=== PATIENT | male | born 1985 | race African-American/Black ===

== ENCOUNTER 2023-02-17 15:53 | Outpatient (AMB) | payer OTHER, SELFPAY ==
--- NOTE | 2023-02-17 16:11 | A.OFFPC_ITS ---
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 HTN: Blood pressure is elevated today. He is taking lisinopril 10mg. Denies chest pain, shortness of breath, headache, dizziness, and blurred vision. He reports he is fasting, which always causes his BP to rise. He reports being checked at other medical facilities, reporting his BP is much better. He would rather not start/increase any medication. I will have him take his BP at home, and drop off values in 2-3 weeks. WIll add/adjust medications depending on values. Awaiting previous records from previous provider. #2 Pt reports twisting discomfort to his LLQ. He reports it is 4 times a year, descirbing passing hard stool . educated pt on constipation, treatment, including water increase, stool softeners, more fiber (in foods/supplement). [facility] Family History (Updated 02/17/23 @ 16:20 by YESY Landon) Mother Substance abuse in family Father Substance abuse in family Social History Housing: House Patient Tobacco Use Status: Never used Tobacco service: No Current occupational status: employed Cognitive needs: No Hearing needs: No Vision needs: No Questionnaire AUDIT C Alcohol Use Questionnaire (AUDIT-C) 1. How often do you have a drink containing alcohol?: Monthly or less 2. How many drinks containing alcohol do you have on a typical day when you are drinking?: 1 or 2 3. How often do you have six or more drinks on one occasion?: Never Total Score: 1 Score Reviewed/Action Taken: No Review of Systems Const Reports as per HPI Physical exam (Primary Care) Vital Signs: Last Vital Signs BP 160/120 H 02/17/23 16:18 Tobacco/Smoking Status: Tobacco use Status Tobacco use date assessed 02/17/23 02/17/23 16:22 Patient Tobacco Use Status Never used Tobacco 02/17/23 16:22 Const General: cooperative Orientation/consciousness: patient oriented x3 Resp Effort & Inspection: normal respiratory effort Auscultation: clear to auscultation bilaterally Cardio Rate: regular rate Rhythm: regular rhythm Heart sounds: S1 normal heart sound present, S2 normal heart sound present and no murmurs Neuro General: patient oriented x3 Extrem Right lower extremity: no edema Left lower extremity: no edema Psych Appearance: grossly normal Mental Status: mental status grossly normal Speech and movement: Normal speech and movement present Affect: normal affect Attitude: cooperative Thought process: Normal thought process present Thought content: Normal thought content present Insight: Good insight present (Psych) Judgement: Good judgement present (Psych) Assessment and Plan Assessment & Plan (1) HTN (hypertension): Code(s): I10 - Essential (primary) hypertension Plan: continue lisinopril 10mg, drop off values from home in 2-3 weeks. ER if symptomatic (2) Constipation: Code(s): K59.00 - Constipation, unspecified Plan: increased fiber and water. May use miralax or stool softeners Plan The patient agreed to the use of a manager medical device for this encounter. Scribed for CASSIE Lopez by Mervat Camarena manager medical device, on 02/17/2023 at 16:30 EST. Orders: Orders UA CC w/rflx Micro + Cult Today I10 - Essential (primary) hypertension Complete Blood Count Auto Diff Today I10 - Essential (primary) hypertension Comprehensive [place]. Panel Fast Today I10 - Essential (primary) hypertension TSH reflex Free T4 Today I10 - Essential (primary) hypertension Lipid Panel Today I10 - Essential (primary) hypertension Coding Level of Care Code New Pt Level 3 (01272) Diagnoses HTN (hypertension) I10 Constipation K59.00
[2023-02-17 16:18] VITALS: BP 160/120
== END 2023-02-17 17:10 | disposition home or self-care (01) ==
PROVIDERS: PCP Nurse Practitioner Family; Visit Provider Nurse Practitioner Family
DX: I10 Essential (primary) hypertension (principal); K59.00 Constipation, unspecified
CPT/HCPCS: 99203

== ENCOUNTER 2023-06-22 15:33 | Outpatient (AMB) | payer OTHER, SELFPAY ==
--- NOTE | 2023-06-22 15:36 | A.OFFPC_ITS ---
Vital Signs 06/22/23 15:40 Height 5 ft 10 in Weight 290 lb BMI 41.6 BP 122/76 Blood Pressure Location Lt brachial Position Sitting Pulse 114 H Pulse Source Pulse Oximeter Pulse Oximetry (%) 96 Oxygen Delivery Method Room Air Intake Visit Reasons: 4 Month F/U Intake Note: pt is here for 4 month follow up, patient did not do labs Orthopedics Pediatric Physician Required: No Accompanied by: Self / Same As Patient Allergies No Known Allergies Allergy (Verified 06/22/23 17:16) Medication List - Last Reconciled 06/22/23 by Emory Vasquez, [facility] lisinopril 10 mg PO DAILY Tobacco use date assessed: 06/22/23 Dental Screening Dental Screen Date: 06/22/23 Did you have a dental visit in the last 12 months?: No Did you have a dental problem in the last 6 months where you did not have access to dental care?: No Was dental information given to patient?: Yes HPI 4 Month F/U HPI Details Pt was seen in [place] [facility] last month due to abdominal pain. He reports that CT showed diverticulitis. He was given antibiotics and admitted. Pt reportedly developed an abscess and was given IV fluids and antibiotics. No surgical intervention was performed. Missing documentation from this. He reports softer stool this morning. Pt reports increased LLQ abdominal pain. Concern for recurrent abscess. Sending pt to [place] [facility] for further evaluation. Denies fever and N/V/D. HTN: Blood pressure is stable. Denies chest pain, shortness of breath, and dizziness. PFSH Surgical History (Updated 06/22/23 @ 15:41 by Yinka Conley CMA) S/P ACL surgery Family History Mother Substance abuse in family Father Substance abuse in family Social History Housing: House Patient Tobacco Use Status: Never used Tobacco e-Cigarette/Vaping Use: Never Used service: No Current occupational status: employed Current occupation: [employer] Cognitive needs: No Hearing needs: No Vision needs: No Questionnaire Thrive Questionnaire Date Thrive assessed: 06/22/23 AUDIT C Alcohol Use Questionnaire (AUDIT-C) 1. How often do you have a drink containing alcohol?: Monthly or less 2. How many drinks containing alcohol do you have on a typical day when you are drinking?: 1 or 2 3. How often do you have six or more drinks on one occasion?: Never Total Score: 1 Score Reviewed/Action Taken: No SILVIA-7 AMB Questionnaire SILVIA-7 Date SILVIA - 7 assessed: 06/22/23 Source: Developed by Drs. Patrick Edwards, Angi Aguilera, Munir Grossman and colleagues, with an educational lito from [employer]. Review of Systems Const Reports as per HPI Physical exam (Primary Care) Vital Signs: Last Vital Signs Pulse 114 H 06/22/23 15:40 BP 122/76 06/22/23 15:40 Pulse Ox 96 06/22/23 15:40 Oxygen Delivery Method Room Air 06/22/23 15:40 BMI result Body Mass Index 41.6 Tobacco/Smoking Status: Tobacco use Status Tobacco use date assessed 06/22/23 06/22/23 15:39 Patient Tobacco Use Status Never used Tobacco 06/22/23 15:39 e-Cigarette/Vaping Use Never Used 06/22/23 15:45 Thrive Assessment: Date of Thrive Assessment Date Thrive assessed 06/22/23 06/22/23 15:45 Const General: cooperative Nutritional Appearance: obese morbidly obese Orientation/consciousness: patient oriented x3 GI Other: severe tenderness noted with slight palpation of LLQ Neuro General: patient oriented x3 Psych Appearance: grossly normal Mental Status: mental status grossly normal Speech and movement: Normal speech and movement present Affect: normal affect Attitude: cooperative Thought process: Normal thought process present Thought content: Normal thought content present Insight: Good insight present (Psych) Judgement: Good judgement present (Psych) Assessment and Plan Assessment & Plan (1) HTN (hypertension): Code(s): I10 - Essential (primary) hypertension Plan: stable (2) History of diverticular abscess: Code(s): Z87.19 - Personal history of other diseases of the digestive system Plan: told pt to go directly to the ER at [facility] Coding Level of Care Code Est Pt Level 3 (43026) Diagnoses HTN (hypertension) I10 History of diverticular abscess Z87.19
[2023-06-22 15:40] VITALS: BP 122/76; PULSE 114; O2SAT 96; BMI 41.6
== END 2023-06-22 16:07 | disposition home or self-care (01) ==
LOC: HO.HMGC 15:33
PROVIDERS: PCP Nurse Practitioner Family; Visit Provider Nurse Practitioner Family
DX: I10 Essential (primary) hypertension (principal); Z87.19 Personal history of other diseases of the digestive system
CPT/HCPCS: 99213

== ENCOUNTER 2023-06-30 09:16 | Outpatient (AMB) | payer OTHER, SELFPAY ==
--- NOTE | 2023-06-30 09:18 | MHC.PC.OV ---
Vital Signs 06/30/23 09:19 Height 5 ft 10 in Intake Visit Reasons: BP check Allergies No Known Allergies Allergy (Verified 06/30/23 09:02) Medication List - Last Reconciled 06/30/23 by DONNA VasquezP- amlodipine 2.5 mg PO DAILY ciprofloxacin HCl 500 mg PO BID lisinopril-hydrochlorothiazide 20-12.5 mg 1 tab PO DAILY metronidazole 500 mg PO TID Tobacco use date assessed: 06/22/23 HPI BP check HPI Details HTN: Blood pressure is managed with lisinopril 10mg. Pt does not monitor his blood pressure at home, encouraged him to do so. Will stop lisinopril 10mg and start lisinopril-hctz 20-12.5mg. Will also add amlodipine 2.5mg. Denies chest pain, shortness of breath, headache, dizziness, and blurred vision. [facility] Surgical History (Updated 06/22/23 @ 15:41 by Yinka Conley CMA) S/P ACL surgery Family History Mother Substance abuse in family Father Substance abuse in family Social History Housing: House Patient Tobacco Use Status: Never used Tobacco e-Cigarette/Vaping Use: Never Used service: No Current occupational status: employed Current occupation: [employer] Cognitive needs: No Hearing needs: No Vision needs: No Questionnaire Thrive Questionnaire Date Thrive assessed: 06/22/23 SILVIA-7 AMB Questionnaire SILVIA-7 Date SILVIA - 7 assessed: 06/22/23 Source: Developed by Drs. Patrick Edwards, Angi Aguilera, Munir Grossman and colleagues, with an educational lito from [employer]. Review of Systems Const Reports as per HPI Physical exam (Primary Care) Tobacco/Smoking Status: Tobacco use Status Tobacco use date assessed 06/22/23 06/30/23 09:19 Patient Tobacco Use Status Never used Tobacco 06/30/23 09:19 e-Cigarette/Vaping Use Never Used 06/30/23 09:19 Thrive Assessment: Date of Thrive Assessment Date Thrive assessed 06/22/23 06/30/23 09:19 Const General: cooperative Orientation/consciousness: patient oriented x3 Resp Effort & Inspection: normal respiratory effort Auscultation: clear to auscultation bilaterally Cardio Rate: regular rate Rhythm: regular rhythm Heart sounds: S1 normal heart sound present and S2 normal heart sound present Neuro General: patient oriented x3 Extrem Right lower extremity: no edema Left lower extremity: no edema Psych Appearance: grossly normal Mental Status: mental status grossly normal Speech and movement: Normal speech and movement present Affect: normal affect Attitude: cooperative Thought process: Normal thought process present Thought content: Normal thought content present Insight: Good insight present (Psych) Judgement: Good judgement present (Psych) Assessment and Plan Assessment & Plan (1) HTN (hypertension): Code(s): I10 - Essential (primary) hypertension Plan: stopping lisinopril 10mg, starting lisinopril 20-hctz12.5mg and also adding amlodipine 2.5mg. pt will drop off BPs in the near future and i highly encouraged he get labs drawn approx 1-2 weeks after starting meds. Plan The patient agreed to the use of a medical information officer for this encounter. Scribed for SHARMIN Lopez-PLACIDO by Mervat Camarena medical information officer, on 06/30/2023 at 09:30 EST. Medications: New lisinopril-hydrochlorothiazide 20-12.5 mg 1 tab PO DAILY 90 tabs 0RF amlodipine 2.5 mg PO DAILY 90 tabs 0RF Coding Level of Care Code Est Pt Level 3 (03300) Diagnoses HTN (hypertension) I10
== END 2023-06-30 13:03 | disposition home or self-care (01) ==
LOC: HO.HMGC 09:16
PROVIDERS: PCP Nurse Practitioner Family; Visit Provider Nurse Practitioner Family
DX: I10 Essential (primary) hypertension (principal)
CPT/HCPCS: 99213

== ENCOUNTER 2023-10-22 11:15 | Outpatient (REF) | payer BC, SELFPAY ==
[2023-10-22 13:08] LABS: MANUAL DIFF FLAG NO
[2023-10-22 13:14] LABS: Appearance Urine Clear; Color Urine Yellow; Glucose Urine UA Negative (Negative); Leukocyte Esterase Urine Negative (Negative); Nitrite Urine Negative (Negative); PH 5.5 (5.0-9.0); Specific Gravity - Urine 1.025 (1.005-1.025); Urine Blood Negative (Negative); Urine Ketones Trace mg/dL (Negative); Urine Protein Negative (Neg-Trace)
[2023-10-22 13:18] LABS: Basophils Percent Auto 0.7 % (0-2); Eosinophils Absolute Auto 0.2 X10*3/uL (0.0-0.4); Eosinophils Percent Auto 3.5 % (0-4); Hemoglobin 15.8 g/dl (14.0-18.0); Imm Gran Abs Auto 0.02 X10*3/uL (0.00-0.03); Imm Gran Pct Auto 0.3 % (0.0-0.4); Lymphocytes Absolute Auto 2.8 X10*3/uL (1.2-4.9); Lymphocytes Percent Auto 48.2 % (20-40); Mean Corpuscular HGB Conc 35.1 g/dl (31.0-36.0); Mean Corpuscular Hemoglobin 30.1 pg (27.0-33.0); Mean Corpuscular Volume 85.7 fL (80.0-98.0); Monocytes Absolute Auto 0.6 X10*3/uL (0.1-1.2); Monocytes Percent Auto 9.8 % (2-11); Neutrophils Absolute Auto 2.2 x10*3/uL (2.0-8.3); Neutrophils Percent Auto 37.5 % (45-73); Platelet Count 240 X10*3/uL (160-400); Red Blood Count 5.25 X10*6/uL (4.60-5.80); Red Cell Distribution Width 13.5 % (11.0-16.0); White Blood Count 5.7 X10*3/uL (4.8-10.8)
[2023-10-22 13:54] LABS: Alanine Aminotransferase 57 U/L (0-40); Albumin Level 4.6 g/dL (3.5-5.0); Alkaline Phosphatase 52 U/L (39-117); Anion Gap 11 (12-20); Aspartate Amino Transferase 39 U/L (5-37); Bilirubin Total 0.9 mg/dL (0.0-1.0); Blood Urea Nitrogen 13 mg/dL (9-16); Calcium 9.8 mg/dL (8.4-10.2); Carbon Dioxide 26 mmol/L (22-29); Chloride 105 mmol/L (96-108); Cholesterol 208 mg/dL (<200); Estimated Glomerular Filt Rate > 60; Glucose Fasting 123 mg/dL (60-99); HDL Cholesterol 30 mg/dL (>40); LDL Cholesterol Calculated 154 mg/dL (<100); Potassium 3.4 mmol/L (3.3-5.1); Sodium 139 mmol/L (135-145); Total Protein 7.6 g/dL (6.5-8.0); Triglycerides 124 mg/dL (<150)
== END 2023-10-22 11:16 | disposition home or self-care (01) ==
LOC: HO.HMGCLDS 11:15
PROVIDERS: PCP Nurse Practitioner Family; Visit Provider Nurse Practitioner Family
DX: I10 Essential (primary) hypertension (principal)
CPT/HCPCS: 36415; 80053; 80061; 81003; 84443; 85025

== ENCOUNTER 2024-03-22 16:06 | Outpatient (AMB) | payer BC, SELFPAY ==
[2024-03-22 16:18] VITALS: BP 136/90; PULSE 72; O2SAT 98; BMI 42.6
--- NOTE | 2024-03-22 16:18 | A.OFFPC_ITS ---
Vital Signs 03/22/24 16:18 03/22/24 16:59 Height 5 ft 10 in Weight 297 lb BMI 42.6 BP 136/90 H 134/90 H Blood Pressure Location Rt brachial Lt brachial Position Sitting Sitting Pulse 72 Pulse Source Pulse Oximeter Pulse Oximetry (%) 98 Oxygen Delivery Method Room Air Intake Visit Reasons: Annual PE Intake Note: pt is here for PE Allergies No Known Allergies Allergy (Verified 06/30/23 09:02) Medication List - Last Reconciled 03/22/24 by SHARMIN Vasquez- amlodipine 10 mg PO DAILY lisinopril-hydrochlorothiazide 20-12.5 mg 1 tab PO DAILY 90 days Tobacco use date assessed: 06/22/23 Dental Screening Dental Screen Date: 06/22/23 HPI Annual PE HPI Details History of Present Illness The patient is a 39-year-old male presenting with a wellness physical examination and management of elevated blood pressure. The patient has a history of essential hypertension which he monitors at home. He reports recent home blood pressure readings as high as 180/120 mmHg approximately two to three weeks ago, raising concerns about the reliability of his home monitoring device. The patient has previously been on Amlodipine 5 mg, which has been insufficient in controlling his hypertension according to recent measurements. He also mentions noticing weight gain, to which he attributes a dietary cause. Additionally, he has a past medical history of liver and kidney issues, indicated by previously elevated enzymes and markers, although detailed history of these conditions is not discussed further in the conversation. 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) - Family: Reports the presence of childr en - Substance Use: Denied current smoking - Diet: Acknowledges recent weight gain and dietary contribution Review of Systems - General: Denies fevers or chills - Respiratory: Denies shortness of breat h - Musculoskeletal: Reports occasional sw elling -denies any cp, sob, si, hi, blood in st ool, GARCIA, blurred vision constipation or diarrhea Physical Exam General: Cooperative, healthy appearing, comfortable, no acute distress and well developed, obese Orientation: Patient oriented x3 Head: Normal to inspection Ears: Hearing grossly normal bilaterally, TMs intact Nose: Normal external nose present Face and sinus: Normal facial exam Eyes: Appearance normal, both eyes and all related structures Neck: Normal visual inspection and Yes full ROM Respiratory: Normal respiratory effort and able to speak in complete sentences. Clear to auscultation bilaterally Cardiovascular: Regular rate and rhythm. Normal S1 and S2, no edema GI: Normal to inspection. Soft to palpation and nontender Skin: No rashes or lesions noted Neuro: Patient oriented x3 Extremities: Normal to inspection, occasional swelling noted Results Plan - Essential Hypertension: Increase Amlod ipine dosage to 10 mg. Encourage adherence to new medication regimen and monitor blood pressure readings. - Elevated Liver Enzymes: Plan to rechec k liver function tests at the next visit. - Elevated Kidney Markers: Plan to reche ck kidney function tests at the next visit. - Weight Gain: Encourage dietary adjustm ents and weight loss to within the desired range of 215-220 pounds. Patient was informed and verbally consented to the use of an ambient scribe for clinic note documentation during this visit. Discussion Notes I discussed with the patient the need to increase his Amlodipine dosage to help manage his elevated blood pressure. I emphasized the importance of weight management and dietary changes in overall health and specifically mentioned the beneficial effect on his liver enzymes. We reviewed the plan to reassess liver and kidney function in future blood tests. We discussed the possibility of medication side effects such as swelling and emphasized monitoring and reporting any significant changes. I reiterated the need to maintain consistent blood pressure monitoring at home and recommended bringing his home cuff for calibration if questionable readings continue. pt reports he will contact me via portal if his BP remains elevated at home. Patient Instructions - Increase Amlodipine to 10 mg as prescr ibed - Maintain regular home blood pressure m onitoring - Report any significant side effects lobo ch as increased swelling - Work on dietary changes for weight man agement to reach target 215-220 pounds - Schedule follow-up appointment for blo od pressure and lab evaluations [facility] Medical History (Updated 03/22/24 @ 16:48 by Emory Vasquez [facility]) Fatty liver Surgical History (Updated 06/22/23 @ 15:41 by Yinka Conley CMA) S/P ACL surgery Family History Mother Substance abuse in family Father Substance abuse in family Social History Housing: House Patient Tobacco Use Status: Never used Tobacco e-Cigarette/Vaping Use: Never Used service: No Current occupational status: employed Current occupation: [employer] Cognitive needs: No Hearing needs: No Vision needs: No Questionnaire PHQ-9 Over the last 2 weeks, how often have you been bothered by any of the following problems? 1. Little interest or pleasure in doing things: not at all 2. Feeling down, depressed, or hopeless: several days 3. Trouble falling or staying asleep, or sleeping too much: more than half the days 4. Feeling tired or having little energy: more than half the days 5. Poor appetite or overeating: more than half the days 6. Feeling bad about yourself - or that you are a failure or have let yourself or your family down: not at all 7. Trouble concentrating on things, such as reading the newspaper or watching television: several days 8. Moving or speaking so slowly that other people could have noticed. Or the opposite - being so fidgety or restless that you have been moving around a lot more than usual: not at all 9. Thoughts that you would be better off or of hurting yourself in some way: not at all Total score: 8 Depression Screening Interpretation: Negative Depression Screening Done: Yes 21229 - PHQ-9 Billing: Yes Source: Developed by Drs. Patrick Edwards, Angi Aguilera, Munir Grossman and colleagues, with an educational lito from [employer]. Thrive Questionnaire Date Thrive assessed: 06/22/23 I am a: Patient What is your living situation today?: I have a steady place to live Within the past 12 months, did the food you bought not last and you didn't have the money to get more?: Never true Within the past 12 months, did you worry whether your food would run out before you got money to buy more?: Never true Do you have trouble paying for medicines?: No Do you have trouble getting transportation to medical appointments?: No Do you have trouble paying your heating and electricity bill?: No Do you have trouble taking care of your child, family member or friend?: No Do you have trouble with day-to-day activities such as bathing, preparing meals, shopping, managing finances, etc.?: No Are you currently unemployed and looking for a job?: No Are you interested in more education?: Yes Please select the resources that you would like help with: Education Currently or been in a relationship where the following occur: No concerns reported THRIVE Score: 0 AUDIT C Alcohol Use Questionnaire (AUDIT-C) 1. How often do you have a drink containing alcohol?: Monthly or less 2. How many drinks containing alcohol do you have on a typical day when you are drinking?: 5 or 6 3. How often do you have six or more drinks on one occasion?: Less than monthly Total Score: 4 SILVIA-7 AMB Questionnaire SILVIA-7 Date SILVIA - 7 assessed: 06/22/23 Feeling nervous, anxious, or on edge: 1 = Several days Not being able to stop or control worryin = Not at all Worrying too much about different things: 1 = Several days Trouble relaxin = Not at all Being so restless that it is hard to sit still: 0 = Not at all Becoming easily annoyed or irritable: 0 = Not at all Feeling afraid as if something awful might happen: 0 = Not at all Total SILVIA-7 score (0-4 normal; 5-9 mild; 10-14 moderate; 15-21 severe): 2 Source: Developed by Drs. Patrick Edwards, Angi Aguilera, Munir Grossman and colleagues, with an educational lito from [employer]. SILVIA-7 Assessment Billing SILVIA-7 Assessment Tool: SILVIA-7 Assessment 67812 Physical exam (Primary Care) Vital Signs: Last Vital Signs Pulse 72 03/22/24 16:18 BP 136/90 H 03/22/24 16:18 Pulse Ox 98 03/22/24 16:18 Oxygen Delivery Method Room Air 03/22/24 16:18 BMI result Body Mass Index 42.6 Tobacco/Smoking Status: Tobacco use Status Tobacco use date assessed 06/22/23 03/22/24 16:20 Patient Tobacco Use Status Never used Tobacco 03/22/24 16:20 e-Cigarette/Vaping Use Never Used 03/22/24 16:20 PHQ-9: PHQ-9 Score PHQ-9: Total score 8 03/22/24 16:48 Depression Screening Interpretation: Negative Thrive Assessment: Date of Thrive Assessment Date Thrive assessed 06/22/23 03/22/24 16:20 Currently or been in a relationship where the following occur: No concerns reported Coding Level of Care Code Est Pt Prev Care 18-39y(15574) Diagnoses Physical exam Z00.00 HTN (hypertension) I10 Additional Codes PHQ-9 - 09507 - PHQ-9 Billing: Yes ([id number]) SILVIA-7 Assessment Billing - SILVIA-7 Assessment Tool: SILVIA-7 Assessment 94026 ([id number]) Assessment & Plan Assessment & Plan (1) Physical exam: Code(s): Z00.00 - Encounter for general adult medical examination without abnormal find ings Category: Medical (2) HTN (hypertension): Code(s): I10 - Essential (primary) hypertension Category: Medical Plan . Orders: Orders Comprehensive [place]. Panel Fast Today Z00.00 - Encounter for general adult medical examination without abnormal findings TSH reflex Free T4 Today Z00.00 - Encounter for general adult medical examination without abnormal findings Lipid Panel Today Z00.00 - Encounter for general adult medical examination without abnormal findings Complete Blood Count Auto Diff Today Z00.00 - Encounter for general adult medical examination without abnormal findings UA CC w/rflx Micro + Cult Today Z00.00 - Encounter for general adult medical examination without abnormal findings Medications: Changed From amlodipine 5 mg PO DAILY 90 tabs 0RF To amlodipine 10 mg PO DAILY 90 tabs 0RF
[2024-03-22 16:59] VITALS: BP 134/90
== END 2024-03-22 17:00 ==
PROVIDERS: PCP Nurse Practitioner Family; Visit Provider Nurse Practitioner Family
DX: Z00.00 Encounter for general adult medical examination without abnormal findings (principal); I10 Essential (primary) hypertension

== ENCOUNTER → 2024-03-22 16:06 | Outpatient (BNVA) | payer BC, SELFPAY | PROVIDERS: PCP Nurse Practitioner Family; Visit Provider Nurse Practitioner Family | DX: Z00.00 Encounter for general adult medical examination without abnormal findings (principal); I10 Essential (primary) hypertension; Z79.899 Other long term (current) drug therapy | CPT/HCPCS: 96127 ==

== ENCOUNTER 2024-08-15 07:19 | Outpatient (AMB) | payer BC, SELFPAY ==
--- NOTE | 2024-08-15 07:24 | A.OFFPC_ITS ---
Intake Visit Reasons: PFMLA paperwork Allergies No Known Allergies Allergy (Verified 08/15/24 07:26) Medication List - Last Reconciled 08/15/24 by DONNA VasquezP- amlodipine 10 mg PO DAILY bupropion HCl SR (Wellbutrin SR) 100 mg PO BID 30 days lisinopril-hydrochlorothiazide 20-12.5 mg 2 tabs PO DAILY 90 days Tobacco use date assessed: 06/22/23 Dental Screening Dental Screen Date: 06/22/23 HPI PFMLA paperwork HPI Details History of Present Illness The patient is a 39-year-old male presenting with requests for FMLA paperwork due to diverticulitis and associated symptoms. He has a history of recurrent episodes of diverticulitis, with the most severe attack last year resulting in abscess formation. In recent months, he has experienced left lower quadrant abdominal pain that has resulted in absences from work approximately two days per month. The patient describes his pain as cramping in nature and localized to the left lower quadrant. He denies having any blood in his stool and reports no fevers or chills accompanying these symptoms. He has not had imaging studies conducted in over a year and understands the importance of seeking emergency care with any exacerbation of symptoms. Review of Systems - Gastrointestinal: Reports left lower q uadrant abdominal cramping, denies blood in stool. - Constitutional: Denies fevers, chills. Plan The plan involves completing the FMLA paperwork due to his diverticulitis and associated symptoms, and ordering a CT scan of the abdomen to evaluate his current condition given the lack of recent imaging. A referral to a gastroenter ologist will be made for regular care. He is advised to seek emergency care if symptoms worsen. Encouraged increasing fiber and water intake. Discussion Notes During the consultation, I discussed with the patient the importance of obtaining updated imaging to assess his diverticulitis given his symptom history and work absences. We agreed on obtaining a CT scan of the abdomen. I also explained the significance of gastroenterological input for his condition, and he will be referred accordingly. I emphasized the need to attend an emergency room should his symptoms exacerbate. The patient was agreeable to these recommendations and acknowledged understanding of the plan. I will fill out his FMLA paperwork as he continues to manage his symptoms and seeks further evaluation. Patient Instructions - Schedule a CT scan of the abdomen. - Follow up with a ground host/hostess fo r regular care. - Go to the emergency room if symptoms g et worse. - Expect to receive completed FMLA paper work. PFSH Medical History Fatty liver Surgical History S/P ACL surgery Family History Mother Substance abuse in family Father Substance abuse in family Social History Housing: House Patient Tobacco Use Status: Never used Tobacco e-Cigarette/Vaping Use: Never Used service: No Current occupational status: employed Current occupation: [employer] Cognitive needs: No Hearing needs: No Vision needs: No Questionnaire Thrive Questionnaire Date Thrive assessed: 06/22/23 SILVIA-7 AMB Questionnaire SILVIA-7 Date SILVIA - 7 assessed: 06/22/23 Source: Developed by Drs. Patrick Edwards, Angi Aguilera, Munir Grossman and colleagues, with an educational lito from [employer]. Physical exam (Primary Care) Tobacco/Smoking Status: Tobacco use Status Tobacco use date assessed 06/22/23 03/22/24 16:20 Patient Tobacco Use Status Never used Tobacco 03/22/24 16:20 e-Cigarette/Vaping Use Never Used 03/22/24 16:20 Thrive Assessment: Date of Thrive Assessment Date Thrive assessed 06/22/23 03/22/24 16:20 Telehealth Telehealth Telehealth Platform: [facility] Location of provider rendering services: practice address Location of patient: address on file Patient Identification confirmed using: Name, : Yes Telehealth method: video Patient verbally consented to treatment: Yes Patient verbally consented to billing insurance company: Yes Patient informed of any privacy concerns related to visit: Yes Minutes spent on Phone/Video with Pt.: 15 Coding Level of Care Code Tele Est Pt Level 3 (25830) Diagnoses LLQ pain R10.32 History of diverticular abscess Z87.19 Assessment & Plan Assessment & Plan (1) LLQ pain: Code(s): R10.32 - Left lower quadrant pain Category: Medical (2) History of diverticular abscess: Code(s): Z87.19 - Personal history of other diseases of the digestive system Category: Medical Plan . Orders: Orders CT abdomen pelvis w IV con Today R10.32 - Left lower quadrant pain, Z87.19 - Personal history of other diseases of the digestive system
== END 2024-08-15 08:48 | disposition home or self-care (01) ==
LOC: HO.HMCC 07:19
PROVIDERS: PCP Nurse Practitioner Family; Visit Provider Nurse Practitioner Family
DX: R10.32 Left lower quadrant pain (principal); Z87.19 Personal history of other diseases of the digestive system

== ENCOUNTER → 2024-08-15 07:19 | Outpatient (BNVA) | payer BC, SELFPAY | PROVIDERS: PCP Nurse Practitioner Family; Visit Provider Nurse Practitioner Family | DX: Z13.89 Encounter for screening for other disorder (principal) ==

== ENCOUNTER 2024-09-05 13:53 | Outpatient (REF) | payer BC, SELFPAY ==
--- NOTE | ~2024-09-05 | CT_ITS ---
CLINICAL HISTORY: Z87.19 - Personal history of other diseases of the digestive system CT abdomen and pelvis with contrast Comparison: None Findings: No consolidation at the lung bases. Unremarkable gallbladder and bladder. Hepatic steatosis. 1.8 cm lesion in the upper pole of the left kidney which measures higher than simple fluid. The other solid organs are unremarkable. Small hiatal hernia. No bowel dilation. A normal appendix is identified. Colonic diverticulosis. Distal descending/proximal sigmoid inflamed diverticula with trace pericolonic stranding and underdistention versus mild wall thickening. No fluid collection or free air. No aneurysm. No calcified atherosclerotic disease. No lymphadenopathy. No ascites. Small fat containing inguinal hernias. No acute osseous abnormality. Impression: Acute uncomplicated diverticulitis. 1.8 cm indeterminate lesion in the upper pole of left kidney could be a complex cyst. Evaluate further with renal ultrasound or renal mass protocol CT or MR. This document has been electronically signed by: Holly Fajardo MD on 09/06/2024 21:47:41
[2024-09-05] MEDS: Barium Sulfate Oral (Vanilla) 450 ML ORAL.SUSP 900 ML PO (16:48)
[2024-09-05] MEDS: iohexoL 350 MG/ML 100 ML INFUS..BTL 85 ML IV (16:49)
== END 2024-09-05 13:54 | disposition home or self-care (01) ==
LOC: HO.CT 13:53
PROVIDERS: PCP Nurse Practitioner Family; Visit Provider Nurse Practitioner Family
DX: R10.32 Left lower quadrant pain (principal); Z87.19 Personal history of other diseases of the digestive system
CPT/HCPCS: 74177; Q9967

== ENCOUNTER → 2024-09-05 13:55 | Outpatient (BNV) | payer BC, SELFPAY | PROVIDERS: PCP Nurse Practitioner Family; Visit Provider Radiology Diagnostic Radiology | DX: K57.32 Diverticulitis of large intestine without perforation or abscess without bleeding (principal); N28.89 Other specified disorders of kidney and ureter | CPT/HCPCS: 74177 ==

== ENCOUNTER 2024-10-11 08:05 | Outpatient (AMB) | payer BC, SELFPAY ==
[2024-10-11 08:07] VITALS: BP 150/90; PULSE 73; O2SAT 98; BMI 42.6
--- NOTE | 2024-10-11 08:07 | MHC.PC.OV ---
Vital Signs 10/11/24 08:07 10/11/24 08:33 Height 5 ft 10 in Weight 297 lb BMI 42.6 BP 150/90 H 142/90 H Blood Pressure Location Lt brachial Rt brachial Position Sitting Sitting Pulse 73 Pulse Source Pulse Oximeter Pulse Oximetry (%) 98 Oxygen Delivery Method Room Air Intake Visit Reasons: 3 mon f/up Cereal Chemist Required: No Accompanied by: Self / Same As Patient Allergies No Known Allergies Allergy (Verified 10/11/24 08:11) Medication List - Last Reconciled 10/11/24 by DONNA VasquezP- amlodipine 10 mg PO DAILY bupropion HCl XL 150 mg PO QAM dextroamphetamine-amphetamine 15 mg 1 tab PO DAILY lisinopril-hydrochlorothiazide 20-12.5 mg 2 tabs PO DAILY 90 days methylphenidate HCl LA 20 mg PO DAILY Tobacco use date assessed: 10/11/24 Dental Screening Dental Screen Date: 10/11/24 Did you have a dental visit in the last 12 months?: Yes Did you have a dental problem in the last 6 months where you did not have access to dental care?: No Was dental information given to patient?: Patient has dentist HPI 3 mon f/up HPI Details Chief Complaint The patient presents for follow-up of diverticulitis. History of Present Illness The patient is a 39-year-old male presenting with a follow-up for diverticulitis. He was previously diagnosed with acute uncomplicated diverticulitis following a CT scan, which also revealed a lesion on the left kidney, suspected to be a complex cyst. The patient was treated with amoxicillin/clavulanate (Augmentin) and reports significant improvement in symptoms. He has been monitoring his diet, avoiding small seeds, and increasing fiber intake. He denies any blood in his stool but reports intermittent mucus. Physical examination revealed no abdominal tenderness, particularly in the left lower quadrant, and positive bowel sounds were noted. HTN: will have him monitor his BP at home, and send me values via portal. Social History Health Maintenance Review of Systems - Gastrointestinal: Denies blood in stool, reports intermittent mucus. -denies any fevers, chills, CP, SOB, dizziness, blurred vision Physical Exam General: Cooperative, healthy appearing, comfortable, no acute distress and well developed Orientation: Patient oriented x3 Limitations: No limitations Head: Normal to inspection Ears: Hearing grossly normal bilaterally Nose: Normal external nose present Face and sinus: Normal facial exam Eyes: Appearance normal, both eyes and all related structures Neck: Normal visual inspection and Yes full ROM Respiratory: Normal respiratory effort and able to speak in complete sentences. Clear to auscultation bilaterally Cardiovascular: Regular rate and rhythm. Normal S1 and S2 GI: Normal to inspection. Soft to palpation and nontender, especially left lower quadrant. No tenderness noted at all. Positive bowel signs. Skin: No rashes or lesions noted Neuro: Patient oriented x3 Extremities: Normal to inspection Results - Imaging: CT scan showed acute uncomplicated diverticulitis and a lesion on the left kidney, likely a complex cyst. Plan The patient will continue to monitor his diet, avoiding small seeds and increasing fiber intake to manage diverticulitis. An ultrasound of the kidney has been ordered to further evaluate the complex cyst, and a referral to urology will be made for further assessment. Discussion Notes I discussed with the patient the findings of the CT scan, which showed acute uncomplicated diverticulitis and a complex cyst on the left kidney. We reviewed the treatment with amoxicillin/clavulanate, which has improved his symptoms, and the importance of dietary modifications. I explained the need for an ultrasound to further evaluate the kidney cyst and the referral to urology for specialized care. Also, re-emphasized the importance of seeking medical attention with any type of LLQ pain/diverticular attacks. Patient Instructions - Continue to avoid small seeds and increase fiber intake in your diet. - Follow up with the ultrasound appointment for your kidney. - Attend the urology referral for further evaluation of the kidney cyst. [facility] Medical History Fatty liver Surgical History S/P ACL surgery Family History Mother Substance abuse in family Father Substance abuse in family Social History Housing: House Patient Tobacco Use Status: Never used Tobacco e-Cigarette/Vaping Use: Never Used service: No Current occupational status: employed Current occupation: [employer] Cognitive needs: No Hearing needs: No Vision needs: No Questionnaire PHQ-9 Over the last 2 weeks, how often have you been bothered by any of the following problems? 1. Little interest or pleasure in doing things: not at all 2. Feeling down, depressed, or hopeless: not at all 3. Trouble falling or staying asleep, or sleeping too much: not at all 4. Feeling tired or having little energy: several days 5. Poor appetite or overeating: more than half the days 6. Feeling bad about yourself - or that you are a failure or have let yourself or your family down: not at all 7. Trouble concentrating on things, such as reading the newspaper or watching television: more than half the days 8. Moving or speaking so slowly that other people could have noticed. Or the opposite - being so fidgety or restless that you have been moving around a lot more than usual: not at all 9. Thoughts that you would be better off or of hurting yourself in some way: not at all Total score: 5 Depression Screening Interpretation: Negative Depression Screening Done: Yes 00163 - PHQ-9 Billing: Yes Source: Developed by Drs. Patrick Edwards, Angi Aguilera, Munir Grossman and colleagues, with an educational lito from [employer]. Thrive Questionnaire Date Thrive assessed: 10/11/24 I am a: Patient What is your living situation today?: I have a steady place to live Within the past 12 months, did the food you bought not last and you didn't have the money to get more?: Never true Within the past 12 months, did you worry whether your food would run out before you got money to buy more?: Never true Do you have trouble paying for medicines?: No Do you have trouble getting transportation to medical appointments?: No Do you have trouble paying your heating and electricity bill?: No Do you have trouble taking care of your child, family member or friend?: No Do you have trouble with day-to-day activities such as bathing, preparing meals, shopping, managing finances, etc.?: No Are you currently unemployed and looking for a job?: No Are you interested in more education?: Yes Please select the resources that you would like help with: None Currently or been in a relationship where the following occur: No concerns reported THRIVE Score: 0 AUDIT C Alcohol Use Questionnaire (AUDIT-C) 1. How often do you have a drink containing alcohol?: Monthly or less 2. How many drinks containing alcohol do you have on a typical day when you are drinking?: 3 or 4 3. How often do you have six or more drinks on one occasion?: Less than monthly Total Score: 3 Score Reviewed/Action Taken: Yes SILVIA-7 AMB Questionnaire SILVIA-7 Date SILVIA - 7 assessed: 10/11/24 Feeling nervous, anxious, or on edge: 0 = Not at all Not being able to stop or control worryin = Not at all Worrying too much about different things: 0 = Not at all Trouble relaxin = Not at all Being so restless that it is hard to sit still: 0 = Not at all Becoming easily annoyed or irritable: 0 = Not at all Feeling afraid as if something awful might happen: 0 = Not at all Total SILVIA-7 score (0-4 normal; 5-9 mild; 10-14 moderate; 15-21 severe): 0 Source: Developed by Drs. Patrick Edwards, Agni Aguilera, Munir Grossman and colleagues, with an educational lito from [employer]. SILVIA-7 Assessment Billing SILVIA-7 Assessment Tool: SILVIA-7 Assessment 09669 Physical exam (Primary Care) Vital Signs: Last Vital Signs Pulse 73 10/11/24 08:07 BP 150/90 H 10/11/24 08:07 Pulse Ox 98 10/11/24 08:07 Oxygen Delivery Method Room Air 10/11/24 08:07 BMI result Body Mass Index 42.6 Tobacco/Smoking Status: Tobacco use Status Tobacco use date assessed 10/11/24 10/11/24 08:09 Patient Tobacco Use Status Never used Tobacco 10/11/24 08:09 e-Cigarette/Vaping Use Never Used 10/11/24 08:09 PHQ-9: PHQ-9 Score PHQ-9: Total score 5 10/11/24 08:18 Depression Screening Interpretation: Negative Thrive Assessment: Date of Thrive Assessment Date Thrive assessed 10/11/24 10/11/24 08:09 Currently or been in a relationship where the following occur: No concerns reported Coding Level of Care Code Est Pt Level 4 (41008) Diagnoses Renal cyst N28.1 Diverticulitis K57.92 HTN (hypertension) I10 Additional Codes SILVIA-7 Assessment Billing - SILVIA-7 Assessment Tool: SILVIA-7 Assessment 53629 ([id number]) PHQ-9 - 54417 - PHQ-9 Billing: Yes ([id number]) Assessment & Plan Assessment & Plan (1) Renal cyst: Code(s): N28.1 - Cyst of kidney, acquired Category: Medical (2) Diverticulitis: Code(s): K57.92 - Diverticulitis of intestine, part unspecified, without perforation or abscess without bleeding Category: Medical (3) HTN (hypertension): Code(s): I10 - Essential (primary) hypertension Category: Medical Plan . Orders: Orders US renal LT Today N28.1 - Cyst of kidney, acquired
[2024-10-11 08:33] VITALS: BP 142/90
== END 2024-10-11 09:05 | disposition home or self-care (01) ==
LOC: HO.HMCC 08:06
PROVIDERS: PCP Nurse Practitioner Family; Visit Provider Nurse Practitioner Family
DX: N28.1 Cyst of kidney, acquired (principal); K57.92 Diverticulitis of intestine, part unspecified, without perforation or abscess without bleeding; I10 Essential (primary) hypertension

== ENCOUNTER 2024-10-11 08:05 | Outpatient (REF) | payer BC, SELFPAY ==
[2024-10-11 10:18] LABS: MANUAL DIFF FLAG NO
[2024-10-11 10:19] LABS: Appearance Urine Clear; Glucose Urine UA Negative (Negative); PH 6.0 (5.0-9.0); Specific Gravity - Urine 1.020 (1.005-1.025)
[2024-10-11 10:20] LABS: Hematocrit 42.9 % (42.0-52.0); Hemoglobin 15.4 g/dl (14.0-18.0); Imm Gran Abs Auto 0.03 X10*3/uL (0.00-0.03); Imm Gran Pct Auto 0.5 % (0.0-0.4); Lymphocytes Absolute Auto 2.5 X10*3/uL (1.2-4.9); Mean Corpuscular HGB Conc 35.9 g/dl (31.0-36.0); Mean Corpuscular Hemoglobin 30.0 pg (27.0-33.0); Mean Corpuscular Volume 83.6 fL (80.0-98.0); NRBC Abs Auto 0.000 X10*3/uL (0.0-0.012); NRBC Pct Auto 0.0 /100WBC (0.0-0.2); Platelet Count 258 X10*3/uL (160-400); Red Blood Count 5.13 X10*6/uL (4.60-5.80); White Blood Count 6.0 X10*3/uL (4.8-10.8)
[2024-10-11 10:39] LABS: Alanine Aminotransferase 65 U/L (0-40); Albumin Level 4.6 g/dL (3.5-5.0); Alkaline Phosphatase 60 U/L (39-117); Anion Gap 13 (12-20); Aspartate Amino Transferase 57 U/L (5-37); Blood Urea Nitrogen 13 mg/dL (9-16); Calcium 9.1 mg/dL (8.4-10.2); Carbon Dioxide 25 mmol/L (22-29); Chloride 103 mmol/L (96-108); Cholesterol 168 mg/dL (<200); Estimated Glomerular Filt Rate > 60; HDL Cholesterol 29 mg/dL (>40); Potassium 3.5 mmol/L (3.3-5.1); Sodium 137 mmol/L (135-145); Total Protein 7.3 g/dL (6.5-8.0); Triglycerides 203 mg/dL (<150)
== END 2024-10-11 08:06 | disposition home or self-care (01) ==
LOC: HO.HMGCLDS 08:05
PROVIDERS: PCP Nurse Practitioner Family; Visit Provider Nurse Practitioner Family
DX: K57.92 Diverticulitis of intestine, part unspecified, without perforation or abscess without bleeding (principal); N28.1 Cyst of kidney, acquired; I10 Essential (primary) hypertension; Z13.31 Encounter for screening for depression; Z13.39 Encounter for screening examination for other mental health and behavioral disorders; Z00.00 Encounter for general adult medical examination without abnormal findings
CPT/HCPCS: 36415; 80053; 80061; 81003; 84443; 85025; 96127

== ENCOUNTER 2024-12-13 06:43 | Outpatient (AMB) | payer BC, SELFPAY ==
--- NOTE | 2024-12-13 08:20 | MHC.PC.OV ---
Intake Visit Reasons: fmla Allergies No Known Allergies Allergy (Verified 12/13/24 08:22) Medication List - Last Reconciled 12/13/24 by CASSIE Vasquez amlodipine 10 mg PO DAILY bupropion HCl XL 150 mg PO QAM dextroamphetamine-amphetamine 15 mg 1 tab PO DAILY lisinopril-hydrochlorothiazide 20-12.5 mg 2 tabs PO DAILY 90 days methylphenidate HCl LA 20 mg PO DAILY Tobacco use date assessed: 10/11/24 Dental Screening Dental Screen Date: 10/11/24 HPI fmla HPI Details History of Present Illness The patient is a 39-year-old male presenting for FMLA paperwork related to diverticulitis management. The patient experienced a diverticular attack in April, necessitating a brief work absence. No antibiotics were administered (that i'm aware of). He was instructed to seek emergency care for any future attacks. Currently, he reports no symptoms such as fever, chills, or abdominal pain. Review of Systems - General: Denies fever or chills - Gastrointestinal: Denies abdominal pain, particularly in the left lower quadrant Plan 1. Diverticulitis The patient requires FMLA paperwork to cover absences due to diverticulitis attacks. He was advised to seek emergency medical attention if symptoms reoccur. The coverage will extend from April 2024 to April 2025. Discussion Notes I discussed with the patient the importance of seeking emergency care if he experiences another diverticular attack. We agreed that the FMLA paperwork would cover him from April 2024 to April 2025, allowing for necessary absences due to his condition. If future attacks/complications occur after 04/2025, i will gladly fill out any FMLA he may need for treatments/recovery. Patient Instructions - Seek emergency medical attention if you experience symptoms of a diverticular attack, especially if an abscess forms. - Inform the clinic if you have another diverticular attack for further FMLA paperwork. [facility] Medical History Fatty liver Surgical History S/P ACL surgery Family History Mother Substance abuse in family Father Substance abuse in family Social History Housing: House Patient Tobacco Use Status: Never used Tobacco e-Cigarette/Vaping Use: Never Used service: No Current occupational status: employed Current occupation: [employer] Cognitive needs: No Hearing needs: No Vision needs: No Questionnaire Thrive Questionnaire Date Thrive assessed: 10/11/24 I am a: Patient What is your living situation today?: I have a steady place to live Within the past 12 months, did the food you bought not last and you didn't have the money to get more?: Never true Within the past 12 months, did you worry whether your food would run out before you got money to buy more?: Never true Do you have trouble paying for medicines?: No Do you have trouble getting transportation to medical appointments?: No Do you have trouble paying your heating and electricity bill?: No Do you have trouble taking care of your child, family member or friend?: No Do you have trouble with day-to-day activities such as bathing, preparing meals, shopping, managing finances, etc.?: No Are you currently unemployed and looking for a job?: No Are you interested in more education?: Yes Please select the resources that you would like help with: None Currently or been in a relationship where the following occur: No concerns reported THRIVE Score: 0 SILVIA-7 AMB Questionnaire SILVIA-7 Date SILVIA - 7 assessed: 10/11/24 Source: Developed by Drs. Patrick Edwards, Angi Aguilera, Munir Grossman and colleagues, with an educational lito from [employer]. Physical exam (Primary Care) Tobacco/Smoking Status: Tobacco use Status Tobacco use date assessed 10/11/24 10/11/24 08:09 Patient Tobacco Use Status Never used Tobacco 10/11/24 08:09 e-Cigarette/Vaping Use Never Used 10/11/24 08:09 Thrive Assessment: Date of Thrive Assessment Date Thrive assessed 10/11/24 10/11/24 08:09 Currently or been in a relationship where the following occur: No concerns reported Coding Level of Care Code Tele Est Pt Level 3 (66437) Diagnoses History of diverticular abscess Z87.19 Diverticulitis K57.92 LLQ pain R10.32 Assessment & Plan Assessment & Plan (1) History of diverticular abscess: Code(s): Z87.19 - Personal history of other diseases of the digestive system Category: Medical (2) Diverticulitis: Code(s): K57.92 - Diverticulitis of intestine, part unspecified, without perforation or abscess without bleeding Category: Medical (3) LLQ pain: Code(s): R10.32 - Left lower quadrant pain Category: Medical Plan .
== END 2024-12-13 11:33 | disposition home or self-care (01) ==
LOC: HO.HMCC 06:44
PROVIDERS: PCP Nurse Practitioner Family; Visit Provider Nurse Practitioner Family
DX: R10.32 Left lower quadrant pain (principal); K57.92 Diverticulitis of intestine, part unspecified, without perforation or abscess without bleeding; Z87.19 Personal history of other diseases of the digestive system

== ENCOUNTER 2025-01-04 13:03 | Outpatient (REF) | payer BC, SELFPAY ==
--- NOTE | ~2025-01-04 | US_ITS ---
EXAMINATION: US RETROPERITONEAL LIMITED, LEFT(RENAL ONLY) CLINICAL INFORMATION: N28.1 - Cyst of kidney, acquired COMPARISON: CT from September 05, 2024 TECHNIQUE: Grayscale and color Doppler imaging was performed through the left kidney. FINDINGS: LEFT KIDNEY: 11 x 6 x 6 cm (SAG x AP x TRV). The kidney is normal in size, contour, and echogenicity. Renal cortical thickness is normal. In the upper pole, there is a 16 mm anechoic lesion with increased through transmission consistent with a simple cyst. In the lower pole, there is an exophytic lesion 7 mm in diameter that appears hypoechoic with increased through transmission. On the transverse image there is thin incomplete linear internal echogenicity. Doppler demonstrates venous and arterial flow into the renal pelvis. US/US renal LT IMPRESSION: 16 mm simple renal cyst is present in the superior pole left kidney. On CT, it demonstrates soft tissue density consistent with a hyperdense renal cyst likely related to hemorrhage. There is an indeterminate 7 mm exophytic lesion in the lower pole the left kidney that probably represents a mildly complex renal cyst possibly with a thin septation. However, given its small size, definitive characterization is difficult. Bosniak 2F. Follow-up ultrasound in 6-12 months, and then reconsider additional follow-up needs based upon the next ultrasound. Electronically signed by: Francis Drake MD 01/04/2025 01:52 PM EDT
== END 2025-01-04 13:04 | disposition home or self-care (01) ==
LOC: HO.HMGCX 13:03
PROVIDERS: PCP Nurse Practitioner Family; Visit Provider Nurse Practitioner Family
DX: N28.1 Cyst of kidney, acquired (principal)
CPT/HCPCS: 76775

== ENCOUNTER → 2025-01-04 13:07 | Outpatient (BNV) | payer BC, SELFPAY | PROVIDERS: PCP Nurse Practitioner Family; Visit Provider Radiology Diagnostic Radiology | DX: N28.1 Cyst of kidney, acquired (principal) | CPT/HCPCS: 76775 ==